=== PATIENT | female | born 1990 | race African-American/Black ===

== ENCOUNTER 2017-02-19 06:12 | Inpatient (IN) | payer OTHER ==
[~2017-02-19] VITALS: Ht 167.6 cm; Wt 90.9 kg
[2017-02-19] VITALS (9 sets, daily range): BP systolic 131–145; BP diastolic 68–91
[~2017-02-19 06:12] MED LIST: AMOX1TAB11 PO; IBUP200T43 PO; OXYC1TAB7 PO
[2017-02-19] MEDS ORDERED: BUPIVACAINE-EPI 0.25%-1:200000 MPF 30 ML VIAL. ONE (06:29)
[2017-02-19] MEDS ORDERED: SURGICEL HEMOSTAT 4X8 EACH. ONE (06:29)
[2017-02-19] MEDS ORDERED: HYDROmorphone 2 MG/ML VIAL IV PRN (07:00)
[2017-02-19] MEDS ORDERED: IV RINGERS,LACTATED 1000ML 1,000 ML IV SCH (07:00)
[2017-02-19] MEDS ORDERED: PROCHLORPERAZINE 10 MG/2 ML VIAL. IV PRN (07:00)
[2017-02-19] MEDS ORDERED: ONDANSETRON PF 4 MG/2 ML VIAL. IV PRN ×2 (07:00→11:15)
[2017-02-19] MEDS ORDERED: fentaNYL PF VIAL 100 MCG/2 ML VIAL IV PRN (07:00)
[2017-02-19] MEDS ORDERED: LIDOCAINE 1% PF 2 ML VIAL. ID PRN (07:00)
[2017-02-19] MEDS ORDERED: IV RINGERS,LACTATED 1000ML 1,000 ML IV ONE (07:00)
[2017-02-19] MEDS ORDERED: MORPHINE SULFATE 2 MG/ML DISP.SYRIN. IV PRN (07:00)
[2017-02-19 07:38] LABS: NEG OBC UR NEG; POS OBC UR POS
[2017-02-19] MEDS ORDERED: MIDAZOLAM HCL/PF 2 MG/2 ML VIAL. ONE (07:54)
[2017-02-19] MEDS ORDERED: ONDANSETRON PF 4 MG/2 ML VIAL. ONE (07:55)
[2017-02-19] MEDS ORDERED: fentaNYL PF VIAL 250 MCG/5 ML VIAL ONE (07:55)
[2017-02-19] MEDS ORDERED: DEXAMETHASONE SOD PHOS 20 MG/5 ML VIAL. ONE (07:55)
[2017-02-19] MEDS ORDERED: LIDOCAINE 2% PF Vial for OR 5 ML VIAL. ONE (07:56)
[2017-02-19] MEDS ORDERED: PROPOFOL 20 ML IV ONE (07:56)
[2017-02-19] MEDS ORDERED: ROCURONIUM 100 MG/10 ML VIAL. ONE (07:57)
--- NOTE | 2017-02-19 07:59 | PDOC ---
SURGICAL PROGRESS NOTE Subjective Pre-Op Note 26 yo F with left adrenal cyst, increasing in size and symptomatic with pain Endocrine work up unremarkable TO OR for lap vs open left adrenalectomy R/B/A d/w pt Office note H&P reviewed and unchanged Pt seen and examined. Vital Signs Vital Signs Date Time Temp Pulse Resp B/P (MAP) Pulse Ox O2 Delivery O2 Flow Rate FiO2 02/19/17 06:39 97.7 90 20 140/65 99 Room Air 97.7 Labs Laboratory Tests Test 02/19/17 06:25 Urine Test Negative (NEG) Laboratory Tests Test 02/19/17 06:25 Urine Test Negative (NEG) IVANNA VELAZQUEZ MD Feb 19, 2017 07:59
[2017-02-19] MEDS ORDERED: NEOSTIGMINE METHYLSULFATE 5 MG/5 ML SYRINGE. ONE (10:51)
[2017-02-19] MEDS ORDERED: SEVOFLURANE > 120 MINUTES. IH ONE (10:51)
[2017-02-19] MEDS ORDERED: GLYCOPYRROLATE 1 MG/5 ML VIAL. ONE (10:51)
[2017-02-19] MEDS ORDERED: 0.9 % SODIUM CHLORIDE 10 ML DISP.SYRIN. IV PRN (11:15)
--- NOTE | 2017-02-19 11:36 | PDOC4 ---
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 5 mm port was placed in the supraumbilical and epigastric area, 15 port placed left flank, all under laparoscopic guidance. Abdominal cavity was explored, liver normal in appearance, visualized viscera normal in appearance. Spleen noted to have some areas of purple discoloration, concerning for infarction, which may have been a component of the patient's pain. Greater curvature taken down using harmonic scapel and the stomach mobilized to the left. The splenic flexure of the left colon was mobilized with harmonic. Dissection began at superior aspect of the left kidney and worked superiorly. Adrenal gland (not noted on imaging) was identified and normal in appearance. Large adrenal cyst extending posteriorly and laterally to the adrenal gland. It was posterior to the distal normal appearing pancreas with pushing of the pancreas anteriorly, and even with deformity of the stomach anteriorly. The adrenal gland was resected medially with harmonic and the gland and cyst were dissected posteriorly, superiorly and laterally, using blunt and harmonic dissection. The cyst was disrupted during this, with drainage of serous fluid which was evacuated out. Adrenal gland and associated cyst placed in a endocatch bag and brought out and sent to pathology. Large remaining fossa was copiously irrigated. No evidence of bleeding or other pathology. Pancreas, stomach, left colon without evidence of injury. However, the spleen was noted to be completely devascularized throughout. Given the concern for compromise of the splenic vascular supply ( removal of short gastric vessels and chronic impingement of the splenic vessels by large cyst) patient will benefit from splenectomy. Remaining attachment to the splenic hilum from the tail of the pancreas taken with harmonic scapel. Diaphragmatic attachments taken with harmonic. Spleen placed in endocatch bag, partially morcellized with ring forceps, and removed and sent to pathology. Copious irrigation without evidence of other pathology. 19 Wong drain placed in fossa and brought out through supraumbilical port secured with 3 0 nylon. Fascia repaired with 0 vicryl at 15 port. Skin repaired with 4 0 monocryl. Dressings applied. All counts correct. No immediate complications. Patient sent to PACU in stable condition. JEYSON VELAZQUEZ MD Feb 19, 2017 11:36
[2017-02-19] MEDS: fentaNYL PF VIAL 100 MCG/2 ML VIAL IV PRN ×2 (11:42→12:04)
[2017-02-19] MEDS: HYDROcodone/APAP 5/325MG 1 TAB TABLET PO PRN (13:47)
[2017-02-19] MEDS: IV RINGERS,LACTATED 1000ML 1,000 ML IV SCH ×2 (13:51→20:45)
[2017-02-19] MEDS: MORPHINE SULFATE 2 MG/ML DISP.SYRIN. IV PRN ×2 (17:01→20:50)
[2017-02-19] MEDS: DOCUSATE SODIUM 100 MG CAPSULE. PO SCH (20:45)
[2017-02-20 03:00] VITALS: BP 154/92
[2017-02-20] MEDS: MORPHINE SULFATE 2 MG/ML DISP.SYRIN. IV PRN ×3 (05:18→11:55)
[2017-02-20 06:03] LABS: BASO % 0 % (0-3); EOS % 0 % (0-3); HEMATOCRIT 31.9 % (36.0-47.0); HEMOGLOBIN 10.2 g/dL (12.0-15.5); LYMPH # 2.2 x10^3/uL (1.0-4.8); LYMPH % 15 % (24-48); MEAN CORPUSCULAR HEMOGLOBIN 25 pg (25-35); MEAN CORPUSCULAR HGB CONC 32 g/dL (31-37); MEAN CORPUSCULAR VOLUME 79 fL (79-100); MONO % 12 % (0-9); NEUT % 73 % (31-73); PLATELET COUNT 223 x10^3/uL (140-400); RED BLOOD COUNT 4.05 x10^6/uL (3.50-5.40); RED CELL DISTRIBUTION WIDTH 13.8 % (11.5-14.5); WHITE BLOOD COUNT 14.4 x10^3/uL (4.0-11.0)
[2017-02-20 06:23] LABS: CALCIUM 8.3 mg/dL (8.5-10.1); CREATININE 0.5 mg/dL (0.6-1.0); GFR 179.1; POTASSIUM 3.3 mmol/L (3.5-5.1)
[2017-02-20 07:00] VITALS: BP 136/75
[2017-02-20] MEDS: ENOXAPARIN 40 MG/0.4 ML SYRINGE. SQ SCH (08:45)
[2017-02-20] MEDS: DOCUSATE SODIUM 100 MG CAPSULE. PO SCH ×2 (08:45→20:42)
[2017-02-20] MEDS: IV RINGERS,LACTATED 1000ML 1,000 ML IV SCH ×2 (08:45→18:16)
[2017-02-20] MEDS: HYDROcodone/APAP 5/325MG 1 TAB TABLET PO PRN (10:45)
[2017-02-20 10:52] VITALS: BP 136/77
--- NOTE | 2017-02-20 12:26 | PDOC ---
SURGICAL PROGRESS NOTE Subjective Pt with c/o left flank and shoulder pain, mild nausea, no abd pain Vital Signs Vital Signs Date Time Temp Pulse Resp B/P (MAP) Pulse Ox O2 Delivery O2 Flow Rate FiO2 02/20/17 10:52 98.5 95 16 136/77 (96) 99 Room Air 98.5 02/20/17 08:00 2.0 I&O Intake and Output 02/21/17 07:00 Output Total 25 ml Balance -25 ml Drainage Total 25 ml General: Alert, Cooperative, mild distress Abdomen: Soft, No tenderness Labs Laboratory Tests Test 02/19/17 06:25 02/20/17 05:40 Urine Test Negative (NEG) White Blood Count 14.4 x10^3/uL (4.0-11.0) Red Blood Count 4.05 x10^6/uL (3.50-5.40) Hemoglobin 10.2 g/dL (12.0-15.5) Hematocrit 31.9 % (36.0-47.0) Mean Corpuscular Volume 79 fL (79-100) Mean Corpuscular Hemoglobin 25 pg (25-35) Mean Corpuscular Hemoglobin Concent 32 g/dL (31-37) Red Cell Distribution Width 13.8 % (11.5-14.5) Platelet Count 223 x10^3/uL (140-400) Neutrophils (%) (Auto) 73 % (31-73) Lymphocytes (%) (Auto) 15 % (24-48) Monocytes (%) (Auto) 12 % (0-9) Eosinophils (%) (Auto) 0 % (0-3) Basophils (%) (Auto) 0 % (0-3) Neutrophils # (Auto) 10.5 x10^3uL (1.8-7.7) Lymphocytes # (Auto) 2.2 x10^3/uL (1.0-4.8) Monocytes # (Auto) 1.7 x10^3/uL (0.0-1.1) Eosinophils # (Auto) 0.0 x10^3/uL (0.0-0.7) Basophils # (Auto) 0.0 x10^3/uL (0.0-0.2) Sodium Level 139 mmol/L (136-145) Potassium Level 3.3 mmol/L (3.5-5.1) Chloride Level 105 mmol/L (98-107) Carbon Dioxide Level 27 mmol/L (21-32) Anion Gap 7 (6-14) Blood Urea Nitrogen 6 mg/dL (7-20) Creatinine 0.5 mg/dL (0.6-1.0) Estimated GFR (Cockcroft-Gault) 179.1 Glucose Level 89 mg/dL (70-99) Calcium Level 8.3 mg/dL (8.5-10.1) Laboratory Tests Test 02/20/17 05:40 White Blood Count 14.4 x10^3/uL (4.0-11.0) Red Blood Count 4.05 x10^6/uL (3.50-5.40) Hemoglobin 10.2 g/dL (12.0-15.5) Hematocrit 31.9 % (36.0-47.0) Mean Corpuscular Volume 79 fL (79-100) Mean Corpuscular Hemoglobin 25 pg (25-35) Mean Corpuscular Hemoglobin Concent 32 g/dL (31-37) Red Cell Distribution Width 13.8 % (11.5-14.5) Platelet Count 223 x10^3/uL (140-400) Neutrophils (%) (Auto) 73 % (31-73) Lymphocytes (%) (Auto) 15 % (24-48) Monocytes (%) (Auto) 12 % (0-9) Eosinophils (%) (Auto) 0 % (0-3) Basophils (%) (Auto) 0 % (0-3) Neutrophils # (Auto) 10.5 x10^3uL (1.8-7.7) Lymphocytes # (Auto) 2.2 x10^3/uL (1.0-4.8) Monocytes # (Auto) 1.7 x10^3/uL (0.0-1.1) Eosinophils # (Auto) 0.0 x10^3/uL (0.0-0.7) Basophils # (Auto) 0.0 x10^3/uL (0.0-0.2) Sodium Level 139 mmol/L (136-145) Potassium Level 3.3 mmol/L (3.5-5.1) Chloride Level 105 mmol/L (98-107) Carbon Dioxide Level 27 mmol/L (21-32) Anion Gap 7 (6-14) Blood Urea Nitrogen 6 mg/dL (7-20) Creatinine 0.5 mg/dL (0.6-1.0) Estimated GFR (Cockcroft-Gault) 179.1 Glucose Level 89 mg/dL (70-99) Calcium Level 8.3 mg/dL (8.5-10.1) Problem List s/p lap adrenalectomy, splenectomy change pain meds to get better control ADAT antiemetics Problems: IVANNA VELAZQUEZ MD Feb 20, 2017 12:26
[2017-02-20] MEDS ORDERED: METOCLOPRAMIDE 5 MG TABLET. PO PRN (12:30)
[2017-02-20] MEDS: oxyCODONE/APAP 7.5/325 1 TAB TABLET PO PRN ×2 (12:41→17:39)
[2017-02-20] MEDS: KETOROLAC 15 MG/ML VIAL. IV PRN ×2 (12:42→18:16)
[2017-02-20 15:00] VITALS: BP 134/76
[2017-02-20 19:18] VITALS: BP 135/62
[2017-02-20 23:00] VITALS: BP 120/64
[2017-02-21] MEDS: KETOROLAC 15 MG/ML VIAL. IV PRN ×2 (00:16→07:55)
[2017-02-21 03:00] VITALS: BP 142/83
[2017-02-21] MEDS: oxyCODONE/APAP 7.5/325 1 TAB TABLET PO PRN ×3 (03:34→20:46)
[2017-02-21] MEDS: IV RINGERS,LACTATED 1000ML 1,000 ML IV SCH ×3 (03:34→22:17)
[2017-02-21 07:00] VITALS: BP 127/70
[2017-02-21] MEDS: DOCUSATE SODIUM 100 MG CAPSULE. PO SCH ×2 (07:54→20:44)
[2017-02-21] MEDS: ENOXAPARIN 40 MG/0.4 ML SYRINGE. SQ SCH (07:54)
[2017-02-21 11:00] VITALS: BP 149/80
--- NOTE | 2017-02-21 13:36 | PDOC ---
SURGICAL PROGRESS NOTE Subjective taking some clears, no emesis--nausea is improving pain improving not ready to advance diet yet Vital Signs Vital Signs Date Time Temp Pulse Resp B/P (MAP) Pulse Ox O2 Delivery O2 Flow Rate FiO2 02/21/17 11:00 98.7 79 18 149/80 (103) 98 Room Air 98.7 02/20/17 08:00 2.0 General: Alert, Oriented X3, Cooperative, No acute distress Abdomen: Soft, Other (ND, lap dressings dry) Labs Laboratory Tests Test 02/20/17 05:40 White Blood Count 14.4 x10^3/uL (4.0-11.0) Red Blood Count 4.05 x10^6/uL (3.50-5.40) Hemoglobin 10.2 g/dL (12.0-15.5) Hematocrit 31.9 % (36.0-47.0) Mean Corpuscular Volume 79 fL (79-100) Mean Corpuscular Hemoglobin 25 pg (25-35) Mean Corpuscular Hemoglobin Concent 32 g/dL (31-37) Red Cell Distribution Width 13.8 % (11.5-14.5) Platelet Count 223 x10^3/uL (140-400) Neutrophils (%) (Auto) 73 % (31-73) Lymphocytes (%) (Auto) 15 % (24-48) Monocytes (%) (Auto) 12 % (0-9) Eosinophils (%) (Auto) 0 % (0-3) Basophils (%) (Auto) 0 % (0-3) Neutrophils # (Auto) 10.5 x10^3uL (1.8-7.7) Lymphocytes # (Auto) 2.2 x10^3/uL (1.0-4.8) Monocytes # (Auto) 1.7 x10^3/uL (0.0-1.1) Eosinophils # (Auto) 0.0 x10^3/uL (0.0-0.7) Basophils # (Auto) 0.0 x10^3/uL (0.0-0.2) Sodium Level 139 mmol/L (136-145) Potassium Level 3.3 mmol/L (3.5-5.1) Chloride Level 105 mmol/L (98-107) Carbon Dioxide Level 27 mmol/L (21-32) Anion Gap 7 (6-14) Blood Urea Nitrogen 6 mg/dL (7-20) Creatinine 0.5 mg/dL (0.6-1.0) Estimated GFR (Cockcroft-Gault) 179.1 Glucose Level 89 mg/dL (70-99) Calcium Level 8.3 mg/dL (8.5-10.1) Assessment/Plan s/p lap adrenalectomy, splenectomy clears today, hopefully can advance soon and work toward DC Problems: ABELINO RAMIREZ SMART ENERGY SPECIALIST Feb 21, 2017 13:36
[2017-02-21 15:00] VITALS: BP 155/73
[2017-02-21 19:05] VITALS: BP 129/69
[2017-02-21 23:58] VITALS: BP 125/70
--- NOTE | 2017-02-22 00:02 | PATHOLOGY ---
PATHOLOGY REPORT * * * * * * * * FINAL DIAGNOSIS: A. Adrenal gland and periadrenal fibroadipose tissue, left adrenal gland resection: - Adrenal cyst. See comment. B. Spleen, splenectomy: - No significant pathologic abnormalities. COMMENT: Sections of the adrenal gland reveal an adrenal gland cyst. The cyst has a fibrous wall which focally appears to contain smooth muscle. The cyst focally appears to be lined by attenuated to cuboidal shaped cells which have small rounded to ovoid hyperchromatic nuclei. The cyst is focally surrounded by normal appearing adrenal gland, and there is focal attenuated adrenal cortex within the cyst wall. There is focal calcification of the cyst wall. 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 There is no evidence of malignancy. The spleen is removed because it was adherent to the adrenal cyst. Sections of the spleen show no significant pathologic abnormalities. (JPM:carlos:mgr; 02/21/2017) Special Stains Performed: Immunoperoxidase stains for CD34, AE1/AE3, Calretinin, D2-40, CK5/6, and CK7 (A1) REPORT ELECTRONICALLY SIGNED BY: Jose Randle M.D. DATE/TIME: 02/21/2017 15:42 * * * * * * * * GROSS PATHOLOGY: A. The specimen is received in formalin, labeled "Hannah Moy, left adrenal gland/cyst" and consists of an adrenal gland with contiguous collapsed uniloculated cyst, 22 g. The gland measures 7.2 x 3.0 cm. The adrenal thickness ranges from 0.1 cm to 1.0 cm. The uniloculated collapsed cyst measures 7.3 x 2.7 cm. The surface of the cyst shows attached tags of unremarkable adipose tissue. The cyst shows two probable previous incisions measuring up to 1.3 cm in greatest dimension. Sectioning reveals the cyst wall to average 0.1 cm thick. The lining of the cyst is glistening, anand, pink, and focally hemorrhagic. The adrenal gland shows orange and red cut surfaces. Manufacturers Representative sections are submitted A1-A5. B. The specimen is received in formalin, labeled "Hannah Moy, spleen" and consists of a morcellated spleen with a combined weight of 83 g. The fragments range in size from 1.0 cm to 6.0 cm and aggregate to 9.0 x 7.0 x 4.0 cm. The larger fragments show contiguous capsule which is smooth, glistening, and pink to purple. The cut surfaces are soft and red with minimal white pulp identified. No masses or lesions are identified. Represent sections submitted B1-B2. (KENYATTA; 02/19/2017) INITIAL CPT CODE(S): A; 40324, 68092, 81313, 33732, 65232, 48579, 24595 B; 11684 Professional services [place] [place] [address] Technical services performed by [facility] at [address] [place] [address], [facility] [address] [address]. SPECIMEN(S) RECEIVED: A.:Left adrenal gland cyst B.Spleen CLINICAL HISTORY: Left adrenal cyst PATIENT: HANNAH MOY /AGE: 711/18/1990 (Age: 26) PATIENT #: [id number] ALT CASE #: SPECIMEN COLLECTION DATE: 02/19/2017 SPECIMEN RECEIVED DATE: 02/19/2017 [facility] - [address] [place] [address] - PHONE: [phone] * * * END OF REPORT * * *
[2017-02-22] MEDS: oxyCODONE/APAP 7.5/325 1 TAB TABLET PO PRN ×2 (02:43→12:22)
[2017-02-22 03:05] VITALS: BP 139/83
[2017-02-22 07:00] VITALS: BP 138/77
[2017-02-22] MEDS: ENOXAPARIN 40 MG/0.4 ML SYRINGE. SQ SCH (08:29)
[2017-02-22] MEDS: DOCUSATE SODIUM 100 MG CAPSULE. PO SCH (08:29)
[2017-02-22 11:00] VITALS: BP 122/53
--- NOTE | 2017-02-22 11:43 | PDOC ---
ABELINO RAMIREZ APRN 02/22/17 1143: SURGICAL PROGRESS NOTE Subjective tolerating diet feeling better, pain managed with meds Vital Signs Vital Signs Date Time Temp Pulse Resp B/P (MAP) Pulse Ox O2 Delivery O2 Flow Rate FiO2 02/22/17 11:00 98.1 84 18 122/53 (76) 100 Room Air 98.1 I&O Intake and Output 02/23/17 07:00 Intake Total 50 ml Balance 50 ml Intake Oral 50 ml General: Alert, Oriented X3, Cooperative, No acute distress Abdomen: Soft, Other (lap dressings dry, manuelito serosang) Problem List dc home, with drain call saturday for fu Problems: IVANNA VELAZQUEZ MD 02/22/17 1313: SURGICAL PROGRESS NOTE Assessment/Plan pt making progress path benign Problems: ABELINO RAMIREZ APRN Feb 22, 2017 11:43 IVANNA VELAZQUEZ MD Feb 22, 2017 13:13
[2017-02-22] MEDS ORDERED: OXYC1TAB8 PO (11:48)
--- NOTE | 2017-02-25 12:24 | PDOC3 ---
Discharge Summary Date of Admission: Feb 19, 2017 Date of Discharge: Feb 22, 2017 Follow-Up: Other (1-2 weeks) Admitting Diagnosis comment: left adrenal cyst Problems: FINAL DIAGNOSIS left adrenal cyst Brief Hospital Course Ms. Dejesus is a 26 old female who presented with adrenal cyst. She underwent Laparoscopic left adrenalectomy with removal of cyst and laparoscopic splenectomy. postoperatively some nausea and pain control. At discharge tolerating diet, ambulating, and ready for discharge home. Discharge Medications Current Medications Ondansetron HCl (Zofran) 4 mg PRN Q6HRS PRN IV NAUSEA/VOMITING; Start at 07:00; Stop 02/19/17 at 23:00; Status DC Fentanyl Citrate (Fentanyl 2ml Vial) 25 mcg PRN Q5MIN PRN IV MILD PAIN; Start 02/19/17 at 07:00; Stop 02/19/17 at 23:00; Status DC Fentanyl Citrate (Fentanyl 2ml Vial) 50 mcg PRN Q5MIN PRN IV MODERATE PAIN Last administered on 02/19/17 12:04; Start 02/19/17 at 07:00; Stop 02/19/17 at 23:00; Status DC Morphine Sulfate 1 mg PRN Q10MIN PRN IV SEVERE PAIN; Start 02/19/17 at 07:00; Stop 02/19/17 at 23:00; Status DC Ringer's Solution 1,000 ml @ 30 mls/hr Q24H IV Last administered on 06:56; Start 02/19/17 at 07:00; Stop 02/19/17 at 18:59; Status DC Lidocaine HCl (Xylocaine-Mpf 1% Vial) 2 ml PRN 1X PRN ID PRIOR TO IV START; Start 02/19/17 at 07:00; Stop 02/19/17 at 23:00; Status DC Hydromorphone HCl (Dilaudid) 0.5 mg PRN Q10MIN PRN IV SEV PAIN, Second choice; Start 02/19/17 at 07:00; Stop 02/19/17 at 23:00; Status DC Prochlorperazine Edisylate (Compazine) 5 mg PACU PRN PRN IV NAUSEA, MRX1; Start 02/19/17 at 07:00; Stop 02/19/17 at 23:00; Status DC Cefazolin Sodium/ Dextrose 50 ml @ 100 mls/hr 1X PREOP PRN IV PRIOR TO PROCEDURE Last administered on 02/19/17t 08:11; Start 02/19/17 at 06:00; Stop 02/19/17 at 18:00; Status DC Ringer's Solution 1,000 ml @ 75 mls/hr 1X ONCE IV ; Start 02/19/17 at 07:00; Stop 02/19/17 at 20:19; Status DC Bupivacaine HCl/ Epinephrine Bitart (Sensorcaine-Epi 0.25%-1:[id number] Mpf) 30 ml STK-MED ONCE .ROUTE ; Start 02/19/17 at 06:29; Stop 02/19/17 at 07:29; Status DC Cellulose 1 each STK-MED ONCE .ROUTE ; Start 02/19/17 at 06:29; Stop 02/19/17 at 07:30; Status DC Midazolam HCl (Versed) 2 mg STK-MED ONCE .ROUTE ; Start 02/19/17 at 07:54; Stop 02/19/17 at 07:55; Status DC Fentanyl Citrate (Fentanyl 5ml Vial) 250 mcg STK-MED ONCE .ROUTE ; Start at 07:55; Stop 02/19/17 at 07:56; Status DC Ondansetron HCl (Zofran) 4 mg STK-MED ONCE .ROUTE ; Start 02/19/17 at 07:55; Stop 02/19/17 at 07:56; Status DC Dexamethasone Sodium Phosphate (Decadron) 20 mg STK-MED ONCE .ROUTE ; Start at 07:55; Stop 02/19/17 at 07:56; Status DC Propofol 20 ml @ As Directed STK-MED ONCE IV ; Start 02/19/17 at 07:56; Stop 02/19/17 at 07:57; Status DC Lidocaine HCl (Lidocaine Pf 2% Vial) 5 ml STK-MED ONCE .ROUTE ; Start 02/19/17 at 07:56; Stop 02/19/17 at 07:57; Status DC Rocuronium [place] (Zemuron) 100 mg STK-MED ONCE .ROUTE ; Start 02/19/17 at 07: 57; Stop 02/19/17 at 07:58; Status DC Neostigmine Methylsulfate 5 mg STK-MED ONCE .ROUTE ; Start 02/19/17 at 10:51; Stop 02/19/17 at 10:52; Status DC Glycopyrrolate (Robinul) 1 mg STK-MED ONCE .ROUTE ; Start 02/19/17 at 10:51; Stop 02/19/17 at 10:52; Status DC Sevoflurane (Ultane) 90 ml STK-MED ONCE IH ; Start 02/19/17 at 10:51; Stop at 10:52; Status DC Enoxaparin Sodium (Lovenox 40mg Syringe) 40 mg Q24H SQ Last administered on 08:29; Start 02/20/17 at 09:00; Stop 02/22/17 at 17:58; Status DC Sodium Chloride (Normal Saline Flush) 3 ml QSHIFT PRN IV AFTER MEDS AND BLOOD DRAWS; Start 02/19/17 at 11:15; Stop 02/22/17 at 17:58; Status DC Ringer's Solution 1,000 ml @ 100 mls/hr Q10H IV Last administered on 16:48; Start 02/19/17 at 11:14; Stop 02/22/17 at 17:58; Status DC Acetaminophen/ Hydrocodone Bitart (Lortab 5/325) 1 tab PRN Q4HRS PRN PO MILD PAIN Last administered on 02/20/17 10:45; Start 02/19/17 at 11:15; Stop at 12:23; Status DC Ketorolac Tromethamine (Toradol) 15 mg PRN Q6HRS PRN IV PAIN Last administered on 02/21/17 07:55; Start 02/19/17 at 11:15; Stop 02/22/17 at 17:58; Status DC Morphine Sulfate 1 mg PRN Q1HR PRN IV PAIN Last administered on 02/20/17 11: 55; Start 02/19/17 at 11:15; Stop 02/22/17 at 17:58; Status DC Docusate Sodium (Colace) 100 mg BID PO Last administered on 02/22/17 08:29; Start 02/19/17 at 21:00; Stop 02/22/17 at 17:58; Status DC Ondansetron HCl (Zofran) 4 mg PRN Q6HRS PRN IV NAUESA, 1ST CHOICE Last administered on 02/20/17 12:46; Start 02/19/17 at 11:15; Stop 02/22/17 at 17 :58; Status DC Oxycodone/ Acetaminophen (Percocet 7.5/ 325) 1 tab PRN Q4HRS PRN PO PAIN Last administered on 02/22/17 12:22; Start 02/20/17 at 12:30; Stop 02/22/17 at 17 :58; Status DC Metoclopramide HCl (Reglan) 5 mg PRN BFRMEALHC PRN PO NAUSEA/VOMITING; Start 02/20/17 at 12:30; Stop 02/22/17 at 17:58; Status DC Active Scripts Active Oxycodon-Acetaminophen 7.5-325 (Oxycodone Hcl/Acetaminophen) 1 Each Tablet 1 Tab PO PRN Q4HRS PRN Motrin Ib (Ibuprofen) 200 Mg Tablet 400 Mg PO Q6H PRN Amox Tr-K Clv 875-125 Mg Tab (Amoxicillin/Potassium Clav) 1 Each Tablet 1 Tab PO BID Allergies Allergies Coded Allergies Type Severity Reaction Last Updated Verified No Known Drug Allergies 02/19/17 No Disposition/Orders: D/C to Home ABELINO RAMIREZ APRN Feb 25, 2017 12:24
== END 2017-02-22 13:55 | disposition home or self-care (01) | DRG 615 ==
LOC: SURG 06:12 → 6 SOUTH 11:14
PROVIDERS: ADMIT Surgery; ATTEND Surgery
PROC: 0GT24ZZ Resection of Left Adrenal Gland, Percutaneous Endoscopic Approach (ICD-10-PCS; 2017-02-19)
PROC: 07TP4ZZ Resection of Spleen, Percutaneous Endoscopic Approach (ICD-10-PCS; principal; 2017-02-19 08:00)
DX: E27.8 Other specified disorders of adrenal gland (principal)
CPT/HCPCS: 36415; 80048; 81025; 85025; 88305; 88307; 88341; 88342; J0690; J0780; J1100; J1650; J1885; J2250; J2270; J2405; J2704; J2710; J3010; J3490; J7120; J2001

== ENCOUNTER 2017-04-05 22:44 | Emergency (ER) | payer OTHER ==
[~2017-04-05] VITALS: Ht 167.6 cm; Wt 88.9 kg
[~2017-04-05 22:44] MED LIST changes: -IBUP200T43 PO; +IBUP200T44 PO; +OXYC1TAB8 PO
[2017-04-05 22:49] VITALS: BP 146/65
--- NOTE | 2017-04-05 23:12 | PHYS DOC ---
Past Medical History Past Medical History: No Pertinent History Past Surgical History: Appendectomy, Splenectomy, Other Additional Past Surgical Histo: ADRENAL CYST REMOVED Alcohol Use: Occasionally Drug Use: None Adult General Chief Complaint Chief Complaint: LACERATION/AVULSION HPI HPI Patient is a 26-year-old female who presents with left thumb laceration after cutting herself with a kitchen knife accidentally. Review of Systems Review of Systems Constitutional: Denies fever or chills [] Musculoskeletal: Denies back pain or joint pain [] Integument:left thumb laceration Neurologic: Denies headache, focal weakness or sensory changes [] All other systems were reviewed and found to be within normal limits, except as documented in this note. Current Medications Current Medications Current Medications Medications (Trade) Dose Ordered Sig/Ame Start Time Stop Time Status Last Admin Dose Admin Diphtheria/ Tetanus/Acell Pertussis (Boostrix) 0.5 ml ONCE ONCE 04/05/17 23:30 04/05/17 23:31 DC Lidocaine/Sodium Bicarbonate (Buffered Lidocaine 1%) 20 ml 1X ONCE 04/05/17 23:30 04/05/17 23:31 DC Allergies Allergies Allergies Coded Allergies Type Severity Reaction Last Updated Verified No Known Drug Allergies 02/19/17 No Physical Exam Physical Exam Constitutional: Well developed, well nourished, no acute distress, non-toxic appearance. [] Skin: Warm, left medial distal thumb with a laceration approximately 1 cm long incision. No tenderness involvement. Full range of motion to the left thumb including flexion and extension of the PIP and DIP joints. Adequate radius sensation to the left thumb. +2 left radial pulse. Cap refill less than 2 seconds and left fingers. Back: No tenderness, no CVA tenderness. [] Extremities: No tenderness, no cyanosis, no clubbing, ROM intact, no edema. [] Neurologic: Alert and oriented X 3, normal motor function, normal sensory function, no focal deficits noted. [] Psychologic: Affect normal, judgement normal, mood normal. [] Current Patient Data Vital Signs Vital Signs Date Time Temp Pulse Resp B/P (MAP) Pulse Ox O2 Delivery O2 Flow Rate FiO2 04/05/17 22:49 98.6 98 18 97 Room Air 98.6 EKG EKG [] Radiology/Procedures Radiology/Procedures Indication: Left thumb laceration Procedure: The patient was placed in the appropriate position and anesthesia around the laceration was 1% buffered lidocaine, the laceration was explored for foreign objects, none was found. The laceration was cleaned with a 50 middle of normal saline and Betadine. The laceration was closed with 3 interrupted sutures using 4. 0 Vicryl. The wound was covered with nonstick dressing. Course & Med Decision Making Course & Med Decision Making Pertinent Labs and Imaging studies reviewed. (See chart for details) Patient has left thumb laceration that was closed by me as noted in procedures. Tetanus updated. Provided patient wound care instructions as well as return precautions. Dragon Disclaimer Dragon Disclaimer This electronic medical record was generated, in whole or in part, using a voice recognition dictation system. Departure Departure Impression: Primary Impression: Laceration of left thumb Disposition: 01 HOME, SELF-CARE Condition: STABLE Referrals: NO PCP (PCP) follow up with your doctor as needed Patient Instructions: Fingertip Laceration Additional Instructions: You were seen with left thumb laceration that was closed with dissolvable sutures. Keep the area clean and dry. Apply Neosporin to the area twice a day. Monitor the area for signs of infection including increased redness to the area , yellow drainage from the area, warmth to the area and return to the ED or see your own doctor if they occur. Follow-up with your doctor as needed. Problem Qualifiers Primary Impression: Laceration of left thumb Encounter type: initial encounter Damage to nail status: without damage Foreign body presence: without foreign body Qualified Codes: S61.012A - Laceration without foreign body of left thumb without damage to nail, initial encounter MARY BETH PACHECO APRN Apr 05, 2017 23:12
[2017-04-05] MEDS ORDERED: LIDOCAINE 1% / SOD BICARB 8.4% 20 ML VIAL. IJ ONE (23:30)
[2017-04-05] MEDS ORDERED: DIPHTH,PERTUSS(ACELL),TET TOX 0.5 ML DISP.SYRIN. VAX IM ONE (23:30)
== END 2017-04-05 23:39 | disposition home or self-care (01) ==
LOC: ER 22:44
DX: S61.012A Laceration without foreign body of left thumb without damage to nail, initial encounter (principal); Z90.81 Acquired absence of spleen; W26.0XXA Contact with knife, initial encounter; Y93.89 Activity, other specified; Y92.89 Other specified places as the place of occurrence of the external cause; Y99.8 Other external cause status
CPT/HCPCS: 12001; 90471; 90715; 99283-25

== ENCOUNTER 2017-11-01 16:24 | Emergency (ER) | payer OTHER ==
[2017-11-01] MEDS: IBUPROFEN 800 MG TABLET. PO (17:42)
[2017-11-01] MEDS: ACETAMINOPHEN 325 MG TABLET. PO (17:42)
[2017-11-01] MEDS: DEXAMETHASONE SOD PHOS 4 MG/ML VIAL IM (17:43)
[2017-11-02 08:12] LABS: NEGATIVE OBC STREP NEG; POSITIVE OBC STREP POS
== END 2017-11-01 18:15 | disposition home or self-care (01) ==
LOC: ER 16:24
DX: J02.9 Acute pharyngitis, unspecified (principal)
CPT/HCPCS: 87880; 96372; 99283; J1100